=== PATIENT | male | born 1980 | race Caucasian/White ===

== ENCOUNTER 2021-04-04 19:39 | Emergency (ER) | payer SELFPAY ==
[2021-04-04 19:39] VITALS: BP 157/99; PULSE 103; RESP 20; TEMP 37.5; O2SAT 100; BMI 24.6
--- NOTE | 2021-04-04 19:43 | RAD_ITS ---
STUDY: X-RAY - RIGHT HAND REASON FOR EXAM: Male, 40 years old. INJURY TECHNIQUE: 3 view(s) of the hand. COMPARISON: None. FINDINGS: Normal radiocarpal articulation. Normal distal radioulnar joint. Normal visualized carpal bones. Normal carpal articulations Normal carpometacarpal articulation of the thumb. Normal second through fifth carpometacarpal joints. Normal metacarpi. The joint space narrowing and spurring at the metacarpophalangeal joint of the thumb. Normal interphalangeal joint of the thumb. Normal proximal and distal phalanges of the thumb. Normal metacarpophalangeal joints of the second through fifth fingers. Normal proximal and distal interphalangeal joints of the second through fifth fingers. Normal phalanges of the third through fifth fingers. There is swelling of the second finger. There is acute comminuted fracture of the second proximal phalanx. RAD/Hand Min 3 Views IMPRESSION: Fracture of the second proximal phalanx. Electronically Signed: Caleb Snow MD at 20:57 EDT , Service support ,
--- NOTE | 2021-04-04 19:43 | RAD_ITS ---
STUDY: X-RAY - RIGHT ANKLE REASON FOR EXAM: Male, 40 years old. INJURY -- TECHNIQUE: 3 view(s) of the ankle. COMPARISON: None. FINDINGS: Normal visualized distal tibia and fibula. Normal medial and lateral malleoli. Normal tibiotalar articulation and ankle mortise. Normal visualized talus. Plantar spur of the calcaneus. The visualized subtalar, talonavicular, calcaneocuboid and tarsal articulations are normal. There is no demonstrated fracture. There is soft tissue swelling. RAD/Ankle min 3 Views IMPRESSION: No fracture. Heel spur. Soft tissue swelling. Electronically Signed: Caleb Snow MD at 20:56 EDT , Service support ,
--- NOTE | 2021-04-04 19:43 | CT_ITS ---
STUDY: CT CERVICAL SPINE WITHOUT CONTRAST REASON FOR EXAM: Male, 40 years old. INJURY RADIATION DOSAGE (If Supplied By Facility): CTDIvol = ( 24.76 ) mGy, DLP = ( 573.53 ) mGycm TECHNIQUE: High resolution transaxial imaging was performed without contrast material. Sagittal and coronal images were reconstructed. Individualized dose optimization techniques were used for this CT. COMPARISON: None FINDINGS: Normal craniovertebral junction. Normal anterior atlantoaxial articulation. Normal odontoid process. Normal cervical lordosis. Normal vertebral bodies and posterior osseous elements. There is no acute fracture. C2-3: Normal endplates. Normal disc height and morphology. Mild facet spurring on the left. Normal central canal and intervertebral neuroforamina. C3-4: Disc bulge. Mild facet spurring. Normal central canal and intervertebral neuroforamina. C4-5: Disc bulge and spurring to the left. Facet spurring. Mild canal stenosis. Mild left foraminal narrowing. C5-6: Disc space narrowing. Disc bulge and spurring. Mild facet spurring. Mild canal stenosis. Right foraminal narrowing. C6-7: Mild spurring. Mild facet spurring. Normal central canal and intervertebral neuroforamina. C7-T1: Normal endplates. Normal disc height and morphology. Normal central canal and intervertebral neuroforamina. Normal visualized soft tissue structures. CT/Spine Cervical without Contras IMPRESSION: Multilevel degenerative changes, as described above. Electronically Signed: Caleb Snow MD at 20:54 EDT , Service support ,
--- NOTE | 2021-04-04 19:52 | CT_ITS ---
EXAMINATION : Head CT w/out contrast HISTORY : INJURY COMPARISON : None. TECHNIQUE : Multiple contiguous axial images were obtained from the skull base to the vertex without intravenous contrast. A radiation dose optimization technique was used for this scan. FINDINGS : The ventricles and sulci are normal in size. There is no evidence for acute intracranial hemorrhage, mass effect, or midline shift. There is no extra-axial fluid collection. There is normal howard-white differentiation, without CT evidence of acute ischemia or infarct. The skull base and calvarium are unremarkable. The orbits are unremarkable. The paranasal sinuses are clear. The mastoid air cells are well-aerated. The soft tissues are unremarkable. CT/Brain/Head without Contrast IMPRESSION: No acute intracranial abnormality. Electronically Signed: Gunner Senior MD at 20:15 EDT Tel , Service support ,
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
[2021-04-04 22:00] VITALS: BP 157/99; PULSE 103; RESP 20; TEMP 37.5; O2SAT 100
== END 2021-04-04 22:03 | disposition home or self-care (01) ==
PROVIDERS: Emergency Provider Emergency Medicine
DX: S62.610A Displaced fracture of proximal phalanx of right index finger, initial encounter for closed fracture (principal); S61.210A Laceration without foreign body of right index finger without damage to nail, initial encounter; S06.0X9A Concussion with loss of consciousness of unspecified duration, initial encounter; V27.4XXA Motorcycle driver injured in collision with fixed or stationary object in traffic accident, initial encounter; Y93.9 Activity, unspecified; Y92.9 Unspecified place or not applicable; F17.200 Nicotine dependence, unspecified, uncomplicated
CPT/HCPCS: 70450; 72125; 73130; 73610; 99283

== ENCOUNTER 2022-04-28 05:52 | Emergency (ER) | payer MEDICAID, SELFPAY ==
[2022-04-28 05:55] VITALS: BP 139/80; PULSE 82; RESP 18; TEMP 36.3; O2SAT 100; BMI 22.1
[2022-04-28 05:59] VITALS: O2SAT 100
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
[2022-04-28] MEDS: Diphth,Pertuss(Acell),Tet Vac 0.5 ML Vial IM (06:25)
--- NOTE | 2022-04-28 07:03 | RAD_ITS ---
EXAM: XR RIGHT HUMERUS, 2 OR MORE VIEWS CLINICAL INDICATION: Injury/Pain TECHNIQUE: Frontal and lateral views of the right humerus. This report was created using [employer] report generation technology. COMPARISON: None. FINDINGS: BONES/JOINTS: Surgical changes of the proximal humeral shaft consistent with a previous biceps tenodesis. No acute fracture. No subluxation. Normal alignment. Preservation of the joint space. No sclerotic or destructive changes observed. SOFT TISSUES: Unremarkable. No soft tissue swelling or gas. No radiopaque foreign body. RAD/Humerus min 2 Views IMPRESSION: No acute findings in the right humerus. Electronically Signed: Benjamin Hankins MD at 7:51 EDT ,
[2022-04-28 08:10] VITALS: BP 138/89; PULSE 74; RESP 16; O2SAT 98
== END 2022-04-28 08:12 | disposition home or self-care (01) ==
PROVIDERS: Emergency Provider Emergency Medicine; Visit Provider Emergency Medicine
DX: S16.1XXA Strain of muscle, fascia and tendon at neck level, initial encounter (principal); S46.911A Strain of unspecified muscle, fascia and tendon at shoulder and upper arm level, right arm, initial encounter; F17.210 Nicotine dependence, cigarettes, uncomplicated; S00.01XA Abrasion of scalp, initial encounter; S80.02XA Contusion of left knee, initial encounter; S80.01XA Contusion of right knee, initial encounter; V47.5XXA Car driver injured in collision with fixed or stationary object in traffic accident, initial encounter; Z23 Encounter for immunization
CPT/HCPCS: 70450; 72125; 73060; 73564; 90471; 90715; 99282

== ENCOUNTER 2024-10-27 00:27 | Emergency (ER) | payer SELFPAY ==
[2024-10-27 00:28] VITALS: BP 175/76; PULSE 93; RESP 14; TEMP 36.4; O2SAT 99; BMI 26.1
[2024-10-27 01:00] LABS: Erythrocyte Sedimentation Rate 20 mm/hr (0-20)
--- NOTE | 2024-10-27 01:19 | ED.VIS.LOWEX ---
HPI History of Present Illness Chief Complaint: Edema Informant: patient Narrative Narrative: Bilateral lower extremity swelling for the last few days. Denies any immobilizations. Denies any increased activities. Denies orthopnea or dyspnea. Denies any history of liver cirrhosis. Denies any decreased urine output or foamy urine. Pain to the dorsal foot denies calf or thigh pain. No recent travel or surgeries. No history of PE or DVT. No examination noted redness however denies fever denies history of diabetes. Does not take any daily medications. Prior similar symptoms: No PFSH PFSH Medical History no medical history no medical history Home Medications ?Medication ?Instructions ?Recorded ?Last Taken ?Type cephalexin 500 mg capsule 500 mg PO Q6 #28 CAPSULES 10/27/24 Unknown Rx furosemide 40 mg tablet (Lasix) 40 mg PO DAILY #7 tabs 10/27/24 Unknown Rx Allergy/AdvReac Type Severity Reaction Status Date / Time No Known Allergies Allergy Verified 10/27/24 00:32 Surgical History History of mandibular surgery H/O shoulder surgery Hx of appendectomy Social History Smoking Status: Current every day smoker tobacco type: cigarettes ROS ROS ED Constitutional Constitutional ED: Denies chills, fever(s) or sweats ENT ENT ED: Denies sore throat Cardiovascular Cardiovascular: Reports leg edema; Denies chest pain, orthopnea, palpitations or racing heartbeat Respiratory/Chest Respiratory/Chest: Denies cough, dyspnea, dyspnea on exertion or orthopnea Gastrointestinal Gastrointestinal: Denies abdominal pain, diarrhea, nausea or vomiting Genitourinary Genitourinary ED: Denies dysuria, hematuria or urinary frequency Musculoskeletal Musculoskeletal: Denies back pain, extremity pain or neck pain Integumentary Denies rash or wounds Neurologic Neurologic: Denies headache(s), paresthesias or weakness EXAM Physical Exam Const Vital Signs: 10/27/24 00:28 10/27/24 00:33 Temperature 97.5 F L Temperature Source Oral Pulse Rate 93 Respiratory Rate 14 Respiratory Effort Normal Non-Labored Respiratory Pattern Normal Blood Pressure 175/76 H Blood Pressure Mean 109 Pulse Ox 99 Oxygen Delivery Method Room Air Positive well nourished and well developed General Appearance ED: well developed and NAD HEENT Reports moist mucous membranes normocephalic and atraumatic Eyes General Eye ED: Yes normal appearance of both eyes Neck full ROM Chest Wall Chest: Negative for tenderness Resp normal respiratory effort and normal air movement Effort and Inspection: symmetric chest movement; Negative for respiratory distress Cardio regular rate, regular rhythm and no murmurs Peripheral Pulses: pulses 2+ throughout GI normal to inspection, nondistended, normoactive bowel sounds and non-tender Palpation: Negative for guarding or rebound tenderness present Extremity normal to inspection Extremity Narrative: 1+ bilateral lower extremity edema from the lower leg down to the foot. No calf tenderness. There is noted nonblanching erythema dorsal foot bilaterally redness left anterior tibia nonblanching also. Areas of excoriation scabbing noted to bilateral lower legs. No drainage. No crepitus of the skin. Skin is intact. General Extremety ED: Yes tenderness Neuro oriented x3 and no sensory deficits noted Sensorium / Orientation: awake and alert Skin Skin Narrative: See above MDM MDM MDM Narrative Medical decision making narrative: Interventions / MDM: Differential diagnosis: Peripheral edema lower extremities, cellulitis Diagnosis considered but do not suspect: DVT bilateral symptoms however ultrasound studies are pending as outpatient. Renal failure however creatinine normal. My EKG interpretation: N/A Imaging independently reviewed and interpreted by myself: N/A External documents reviewed: N/A Test considered but not ordered:N/A ED course: Patient nonblanching erythema with swelling bilateral legs. No calf tenderness for concerns for DVT. He reports normal urine output. Will check basic labs labs with laboratory markers. 0200: Labs white count 9.6 creatinine 0.9. CRP 9.1. ESR 20. His erythema is outlined. He started on Keflex. Outpatient ultrasound order as he has new onset peripheral edema. He is started on oral Lasix for peripheral edema.Return precaution discussed with the patient. All questions were answered. Re-evaluation: stable Disposition discussed with patient/family/significant other: Patient Case discussed with consulting clinician: N/A This note was generated with [employer] dictation software. It may contain incorrect words, spelling, and punctuation that were not noted in checking the note before signing. Lab Data Attestation: I reviewed the patient's lab results. Labs: Laboratory Results - last 24 hr 10/27/24 00:30 WBC 11.6 H RBC 4.37 L Hgb 13.3 Hct 40.4 MCV 92.4 MCH 30.4 MCHC 32.9 RDW Std Deviation 48.0 H RDW Coeff of Asmita 14.0 Plt Count 245 MPV 9.5 Immature Gran % (Auto) 0.300 Neut % (Auto) 54.2 Lymph % (Auto) 33.6 [place] % (Auto) 6.9 Eos % (Auto) 4.6 Baso % (Auto) 0.4 Absolute Neuts (auto) 6.3 Absolute Lymphs (auto) 3.88 Nucleated RBC % 0 ESR 20 Sodium 134 Potassium 3.2 L Chloride Direct 95 L Carbon Dioxide 27.4 Anion Gap 12 BUN 8 Creatinine 0.90 Estim Creat Clear Calc 119.24 Est GFR (MDRD) Non-Af 107 BUN/Creatinine Ratio 8.9 L Glucose 106 H Calcium 9.4 Total Bilirubin 0.41 AST 21 ALT 16 Alkaline Phosphatase 89 C-React Prot Ext Range 9.14 H Total Protein 8.1 Albumin 4.4 Globulin 3.6 Albumin/Globulin Ratio 1.2 Discharge Plan Triage Chief Complaint: Edema ED Provider: Vinicio Noel Dx/Rx/DC Orders Clinical Impression: Bilateral cellulitis of lower leg, Edema, peripheral Instructions: ED Cellulitis, ED Peripheral Edema, Bilateral Prescriptions: New cephalexin 500 mg capsule 500 mg PO Q6 Qty: 28 0RF furosemide [Lasix] 40 mg tablet 40 mg PO DAILY Qty: 7 0RF Other Ambulatory Orders: Venous Duplex US - Lee Extrem (Stat) Facility: [facility] - Location: [facility] Ordered By: Dr. Vinicio Noel Primary Care Provider: Care Physician,No Primary Referrals: Care Physician,No Primary [Primary Care Provider] - Kaykay Blackmon DO [[facility]] - 1-2 Weeks Activity Restrictions/Additional Instructions: Take antibiotic prescribed. Labs are stable. Return to radiology department for ultrasounds of the lower extremities. To develop fevers or worsening erythema, return to ED for reevaluation. Print Language: Macedonian Disposition Disposition: Home, Self Care Discharge Date/Time: 10/27/24 02:13
[2024-10-27 01:20] LABS: ALB/GLOB Ratio 1.2 RATIO (0.9-2.4); AST(SGOT) 21 U/L (<=37); Alanine Aminotransfer ALT/SGPT 16 U/L (<=46); Albumin, Serum 4.4 g/dL (3.5-5.0); Alkaline Phosphatase 89 U/L (40-129); Anion Gap 12 (5-15); BUN 8 mg/dL (4-19); BUN/Creat Ratio 8.9 RATIO (10-20); Calcium 9.4 mg/dL (7.6-11.0); Carbon Dioxide 27.4 mmol/L (22.0-29.0); Chloride 95 mmol/L (96-108); EST Glomerular Filtration Rate 107 (>60); Estimated Creatinine Clearance 119.24 ml/min (50-250); Globulin 3.6 g/dL (2.2-4.2); Glucose 106 mg/dL (70-99); Potassium 3.2 mmol/L (3.3-5.1); Protein, Total 8.1 g/dL (5.9-8.4); Sodium Level 134 mmol/L (133-145); Total Bilirubin 0.41 mg/dL (0.00-1.30)
[2024-10-27 01:30] LABS: Absolute Lymphocyte Count 3.88 X10^3/uL (0.83-4.51); Absolute Neutrophil Count 6.3 X10^3/uL (2.0-7.7); Basophil# 0.05 X10^3/uL; Basophil% 0.4 % (0-1); Eosinophil# 0.53 X10^3/uL; Eosinophils% 4.6 % (0-5); Hematocrit 40.4 % (40-54); Hemoglobin 13.3 g/dL (13.0-16.5); Lymphocyte # 3.88 X10^3/ul (0.83-4.51); Lymphocyte % 33.6 % (19-41); Mean Corp Hgb Conc 32.9 g/dL (32-36); Mean Corpuscular Hgb 30.4 pg (27.0-32.0); Mean Corpuscular Volume 92.4 fL (80-94); Mean Platelet Vol. 9.5 fl (6.2-12.0); Monocyte% 6.9 % (0-10); NRBC Flagged by Analyzer 0 % (0-5); Neutrophil # 6.26 X10^3/uL (2.7-7.7); Neutrophil % 54.2 % (47-70); Platelet Count 245 K/mm3 (150-450); Red Blood Count 4.37 M/mm3 (4.6-6.2); White Blood Count 11.6 K/mm3 (4.4-11.0)
[2024-10-27 01:40] LABS: CRP 9.14 mg/L (0.0-3.0)
[2024-10-27] MEDS: Furosemide 40 MG Tablet PO (02:10)
[2024-10-27] MEDS: Cephalexin 250 MG Capsule 500 MG PO (02:10)
== END 2024-10-27 02:13 | disposition home or self-care (01) ==
PROVIDERS: Emergency Provider Emergency Medicine; Visit Provider Emergency Medicine
DX: R60.9 Edema, unspecified (principal); L03.115 Cellulitis of right lower limb; L03.116 Cellulitis of left lower limb; Z90.49 Acquired absence of other specified parts of digestive tract; F17.210 Nicotine dependence, cigarettes, uncomplicated
CPT/HCPCS: 80053; 85025; 85652; 86140; 99284

== ENCOUNTER → 2024-10-27 | Outpatient (CLI) | payer SELFPAY ==
--- NOTE | 2024-10-27 10:55 | VDLE_ITS ---
Reason For Study Reason For Study: BLE LEG PAIN AND SWELLING RIGHT LEFT GSV is normal. GSV is normal. CFV is compressible, spontaneous, phasic, competent CFV is compressible, spontaneous, phasic, competent, and demonstrates normal augmentation. and demonstrates normal augmentation. FV is compressible, spontaneous, phasic, competent FV is compressible, spontaneous, phasic, competent and demonstrates normal augmentation. and demonstrates normal augmentation. POP V is compressible, spontaneous, phasic, competent POP V is compressible, spontaneous, phasic, competent and demonstrates normal augmentation. and demonstrates normal augmentation. T/P Trunk is compressible. T/P Trunk is compressible. PTV is compressible. PTV is compressible. RT PerV is compressible. LT PerV is compressible. Procedure This is a venous duplex using B-mode, color flow and spectral Doppler. Exam performed in department. The exam was diagnostic. 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 VL/Venous Duplex US - Lee Extrem Interpretation Summary Deep veins of the lower extremities are bilaterally patent and compressible seg mentally. There is no evidence of deep vein thrombosis on either side. Valvular competence appears intact within the p roximal deep venous systems bilaterally. The great saphenous veins appear bilaterally patent and compressible segmentall y. Ordering Physician: Vinicio Noel Referring Physician: N/A Performed By: Denny Rojas RVT
== END | disposition home or self-care (01) ==
PROVIDERS: Referring Provider Emergency Medicine; Visit Provider Emergency Medicine
DX: M79.89 Other specified soft tissue disorders (principal)
CPT/HCPCS: 93970